=== PATIENT | female | born 1995 | race Caucasian/White ===

== ENCOUNTER → 2021-03-02 | Outpatient (CLI) | payer OTHER | LOC: M WHC 12:41 | PROVIDERS: ATTEND Obstetrics & Gynecology | DX: O99.282 Endocrine, nutritional and metabolic diseases complicating pregnancy, second trimester (principal) ==

== ENCOUNTER → 2021-04-07 | Outpatient (CLI) | payer OTHER | LOC: M PLALAB 08:44 | PROVIDERS: ATTEND Advanced Practice Midwife | DX: Z34.82 Encounter for supervision of other normal pregnancy, second trimester (principal); Z3A.00 Weeks of gestation of pregnancy not specified ==

== ENCOUNTER → 2021-06-08 | Outpatient (CLI) | payer OTHER ==
[2021-06-08 11:05] LABS: FREE T4 1.02 NG/DL (0.76-1.46); THYROID STIMULATING HORMONE 1.74 uIU/ML (0.358-3.740)
== END ==
LOC: M PLALAB 09:05
PROVIDERS: ATTEND Obstetrics & Gynecology
DX: O99.283 Endocrine, nutritional and metabolic diseases complicating pregnancy, third trimester (principal); E03.9 Hypothyroidism, unspecified; Z3A.35 35 weeks gestation of pregnancy

== ENCOUNTER 2021-06-22 04:21 | Outpatient (CLI) | payer OTHER ==
[~2021-06-22] VITALS: Ht 175.3 cm; Wt 88.7 kg
[2021-06-22] MEDS ORDERED: LEVO175T2 PO (04:40)
[2021-06-22] MEDS ORDERED: PRENTAB9 PO (04:40)
[2021-06-22 04:47] VITALS: BP 99/55
== END 2021-06-22 06:35 | disposition home or self-care (01) ==
LOC: M LDO 04:21
PROVIDERS: ATTEND Obstetrics & Gynecology
DX: O47.1 False labor at or after 37 completed weeks of gestation (principal); Z3A.37 37 weeks gestation of pregnancy; Z88.2 Allergy status to sulfonamides; Z88.8 Allergy status to other drugs, medicaments and biological substances
CPT/HCPCS: 59025; G0378; G0463

== ENCOUNTER 2021-07-02 20:34 | Inpatient (IN) | payer OTHER ==
[~2021-07-02] VITALS: Ht 175.3 cm; Wt 88.8 kg
[~2021-07-02 20:34] MED LIST: LEVO175T2 PO; PRENTAB9 PO
[2021-07-02 20:57] VITALS: BP 151/79
[2021-07-02 21:16] VITALS: BP 132/73
[2021-07-02 21:24] LABS: HEMATOCRIT 28.1 % (36.0-47.0); HEMOGLOBIN 8.6 g/dl (12.0-15.5); MEAN CORPUSCULAR HEMOGLOBIN 24.4 pg (27.0-33.0); MEAN CORPUSCULAR HGB CONC 30.6 g/dl (32.0-36.5); MEAN CORPUSCULAR VOLUME 79.6 fl (80.0-96.0); PLATELET COUNT, AUTOMATED 313 10^3/uL (150-450); RED BLOOD COUNT 3.53 10^6/uL (4.00-5.40); WHITE BLOOD COUNT 9.1 10^3/uL (4.0-10.0)
[2021-07-02] MEDS ORDERED: miSOPROStol 50MCG 1/2 TABLET PV SCH (22:25)
[2021-07-02] MEDS: miSOPROStol 50MCG 1/2 TABLET PO SCH (22:46)
[2021-07-02 22:47] VITALS: BP 121/58
[2021-07-03] VITALS (43 sets, daily range): BP systolic 91–141; BP diastolic 53–108
[2021-07-03] MEDS ORDERED: diphenhydrAMINE 25MG CAP PO ONE (01:40)
[2021-07-03] MEDS: miSOPROStol 50MCG 1/2 TABLET PO SCH (03:01)
[2021-07-03] MEDS ORDERED: OXYTOCIN DRIP 30 UNITS in IV 1 EA IV SCH (10:15)
[2021-07-03] MEDS: LR 1,000 ML IV SCH ×2 (11:26→13:56)
[2021-07-03] MEDS ORDERED: FENTANYL 2MCG/ML ROPIVACAINE 0.2% IN 0.9% NACL 100ML IVBAG As Ordered ONE (12:38)
[2021-07-03] MEDS ORDERED: diphenhydrAMINE 50MG/ML VIAL (J1200) IV PRN (12:45)
[2021-07-03] MEDS ORDERED: FENTANYL/ROPIVACAINE/NACL BAG 100 ML EPIDURAL SCH (12:45)
[2021-07-03] MEDS ORDERED: ePHEDrine SULFATE 25 MG/5 ML(5MG/ML) SYRINGE IV PRN (12:45)
[2021-07-03] MEDS ORDERED: NALOXONE INJ 0.4MG/1ML VIAL (J2310 PER 1MG) IV PRN (12:45)
[2021-07-03] MEDS ORDERED: LACTATED RINGER'S 1000 ML IV PRN (12:45)
[2021-07-03] MEDS ORDERED: EPIDURAL/PCA KEYS XX PRN (12:45)
[2021-07-03] MEDS ORDERED: REFRIGERATOR IV KEYS XX PRN (12:45)
[2021-07-03] MEDS ORDERED: ONDANSETRON 4MG/2ML VIAL IV PRN (12:45)
[2021-07-03] MEDS ORDERED: EPIDURAL COMMENT XX SCH (12:45)
[2021-07-03] MEDS ORDERED: METHYLERGONOVINE MALEATE 0.2 MG/ML VIAL (J2210) IM STA (18:51)
[2021-07-03] MEDS ORDERED: MEASLES,MUMPS,RUBELLA VACCINE INJ (MMR-II) (90707) SC SCH (19:10)
[2021-07-03] MEDS ORDERED: IBUPROFEN 600MG TAB PO PRN (19:10)
[2021-07-03] MEDS ORDERED: ACETAMINOPHEN TAB 650MG DOSE (2X325MG) PO PRN (19:10)
[2021-07-03] MEDS ORDERED: DIBUCAINE 1% OINTMENT 30GM TOP PRN (19:10)
[2021-07-03] MEDS ORDERED: RHOGAM 300 MCG (1500 IU) INJ (J2790) IM SCH (19:10)
[2021-07-03] MEDS ORDERED: ANUSOL HC CREAM 30GM TOP PRN (19:10)
[2021-07-03] MEDS: ACETAMINOPHEN 500 MG TAB PO PRN (19:23)
[2021-07-03] MEDS: DOCUSATE SODIUM 100MG CAPSULE PO SCH (21:44)
[2021-07-03] MEDS: FERROUS SULFATE 325MG TAB PO SCH (21:44)
[2021-07-04] MEDS: ACETAMINOPHEN 500 MG TAB PO PRN ×2 (01:58→11:40)
[2021-07-04 06:00] VITALS: BP 119/56
[2021-07-04] MEDS ORDERED: LEVOTHYROXINE 125MCG TABLET (0.125MG) PO SCH (06:00)
[2021-07-04] MEDS: IBUPROFEN 800 MG TAB PO PRN ×2 (06:23→18:11)
[2021-07-04] MEDS: LEVOTHYROXINE 75MCG TABLET (0.075MG) PO SCH (06:23)
[2021-07-04] MEDS: LEVOTHYROXINE 100MCG TABLET (0.1MG) PO SCH (06:23)
[2021-07-04] MEDS: FERROUS SULFATE 325MG TAB PO SCH ×2 (08:02→20:30)
[2021-07-04] MEDS: DOCUSATE SODIUM 100MG CAPSULE PO SCH ×2 (08:02→20:30)
[2021-07-04] MEDS: PRENATAL VITAMINS CHEWABLE TABLET PO SCH (08:02)
[2021-07-04 10:51] LABS: HEMATOCRIT 28.4 % (36.0-47.0); HEMOGLOBIN 8.8 g/dl (12.0-15.5); MEAN CORPUSCULAR HEMOGLOBIN 24.6 pg (27.0-33.0); MEAN CORPUSCULAR VOLUME 79.6 fl (80.0-96.0); PLATELET COUNT, AUTOMATED 312 10^3/uL (150-450); RED BLOOD COUNT 3.57 10^6/uL (4.00-5.40); WHITE BLOOD COUNT 14.5 10^3/uL (4.0-10.0)
[2021-07-04 17:40] VITALS: BP 112/75
[2021-07-05 06:00] VITALS: BP 100/64
[2021-07-05] MEDS: LEVOTHYROXINE 75MCG TABLET (0.075MG) PO SCH (06:15)
[2021-07-05] MEDS: LEVOTHYROXINE 100MCG TABLET (0.1MG) PO SCH (06:15)
[2021-07-05] MEDS: PRENATAL VITAMINS CHEWABLE TABLET PO SCH (08:24)
[2021-07-05] MEDS: DOCUSATE SODIUM 100MG CAPSULE PO SCH (08:25)
[2021-07-05] MEDS: FERROUS SULFATE 325MG TAB PO SCH (08:25)
[2021-07-05] MEDS: IBUPROFEN 800 MG TAB PO PRN (08:26)
[2021-07-05] MEDS ORDERED: METHYLERGONOVINE MALEATE 0.2 MG/ML VIAL (J2210) ONE (09:22)
[2021-07-05] MEDS ORDERED: FERR1TAB8 PO (11:30)
[2021-07-05] MEDS ORDERED: COLA100C5 PO (11:30)
== END 2021-07-05 11:12 | disposition home or self-care (01) | DRG 807 ==
LOC: M LDI 20:34 → M OBS 07-03 20:58
PROVIDERS: ADMIT Specialist; ATTEND Specialist
PROC: 3E033VJ Introduction of Other Hormone into Peripheral Vein, Percutaneous Approach (ICD-10-PCS; 2021-07-02)
PROC: 3E0DXGC Introduction of Other Therapeutic Substance into Mouth and Pharynx, External Approach (ICD-10-PCS; 2021-07-02)
PROC: 10E0XZZ Delivery of Products of Conception, External Approach (ICD-10-PCS; principal; 2021-07-03)
PROC: 0HQ9XZZ Repair Perineum Skin, External Approach (ICD-10-PCS; 2021-07-03)
DX: O69.82X0 Labor and delivery complicated by other cord entanglement, without compression, not applicable or unspecified (principal); Z37.0 Single live birth; Z3A.39 39 weeks gestation of pregnancy; O09.523 Supervision of elderly multigravida, third trimester; O70.0 First degree perineal laceration during delivery; D64.9 Anemia, unspecified; O36.60X0 Maternal care for excessive fetal growth, unspecified trimester, not applicable or unspecified; O99.019 Anemia complicating pregnancy, unspecified trimester

== ENCOUNTER → 2022-01-18 | Outpatient (CLI) | payer OTHER ==
[~2022-01-18] MED LIST changes: +COLA100C5 PO; +FERR1TAB8 PO
== END ==
LOC: M PLAIMG 08:29
PROVIDERS: ATTEND Otolaryngology
DX: J32.0 Chronic maxillary sinusitis (principal); J31.0 Chronic rhinitis